=== PATIENT | female | born 1960 | race Caucasian/White ===

== ENCOUNTER → 2016-10-26 | Outpatient (CLI) | payer OTHER ==
--- NOTE | 2016-10-26 08:57 | US ---
EXAMINATION TYPE: US abdomen complete DATE OF EXAM: 10/26/2016 8:39 AM COMPARISON: NONE CLINICAL HISTORY: R10.84 Generalized ABD Pain. Epigastric pain EXAM MEASUREMENTS: Liver Length: 13.8 cm Gallbladder Wall: 0.2 cm CBD: 0.5 cm Spleen: 10.3 cm Right Kidney: 9.2 x 5.2 x 3.4 cm Left Kidney: 10.0 x 5.6 x 5.1 cm Pancreas: wnl Liver: wnl Gallbladder: posterior wall focus noted in supine position only suggests possible solitary, mobile, s mall, minimally shadowing stone = 0.3 x 0.3 x 0.3cm. Evidence for sonographic Bearden's sign: No CBD: wnl Spleen: wnl Right Kidney: wnl Left Kidney: wnl Upper IVC: wnl Abd Aorta: wnl Small nonshadowing focus in gallbladder favor small polyp. No shadowing mobile gallstones are seen. IMPRESSION: No shadowing mobile gallstones or ultrasound evidence for acute cholecystitis.
== END | disposition home or self-care (01) ==
LOC: RADUSWWP 08:06
PROVIDERS: ATTEND Family Medicine
DX: R10.84 Generalized abdominal pain (principal)
CPT/HCPCS: 76700

== ENCOUNTER → 2017-06-23 | Outpatient (CLI) | payer OTHER ==
--- NOTE | 2017-06-23 13:17 | BD ---
EXAMINATION TYPE: MG DEXA axial skeleton. DATE OF EXAM: 06/23/2017 CLINICAL HISTORY: Height: 62 Weight: 128 FRAX RISK QUESTIONS: Alcohol (3 or more units per day): no Family History (Parent hip fracture): no Glucocorticoids (More than 3mos): not now..topical cream of & off as needed (Ex: prednisone, prednisolone, methylprednisolone, dexamethasone, and hydrocortisone). History of Fracture in Adulthood: no Secondary Osteoporosis: 1. Type 1 Diabetes: no 2. Hyperthyroidism: no 3. Menopause before 45: no 4. Malnutrition: no 5. Chronic liver disease: no Rheumatoid Arthritis: no Current Tobacco Use: no RISK FACTORS HISTORY OF: Family History of Osteoporosis: no Active: yes Diet low in dairy products/other sources of calcium: about one serving a day Postmenopausal woman: yes Take estrogen and/or progesterone medications: no Lost more than 2 inches in height since high school: no Frequent falls: no Poor Health: no Hyperparathyroidism: no Adrenal Insufficiency: no MEDICATIONS: Prednisone or other steroids: not at present...uses topical cream on & off as needed Thyroid Medications: no Osteoporosis Medications: no Additional Medications: blood pressure meds EXAM MEASUREMENTS: Bone mineral densitometry was performed using the Democravise System. Bone mineral density as measured about the Lumbar spine is: ----- L1-L4(G/cm2): 1.159 T Score Values are as follows: ----- L2: -0.2 ----- L3: -0.7 ----- L4: 0.2 ----- L1-L4: -0.2 Bone mineral density has: Decreased -3.7% since study of: 03/15/2014 Bone mineral density about the R hip (g/cm2): 0.793 Bone mineral density about the L hip (g/cm2): 0.798 T Score values are as follows: -----R Neck: -1.8 -----L Neck: -1.7 -----R Total: -1.1 -----L Total: -1.2 Bone mineral density has: Decreased -5.3% since study of: 03/15/2014 IMPRESSION: Osteopenia (T Score between -2.5 and -1 as noted by T score values There is slightly increased risk of fracture and the patient may be considered for treatment. Re-Screen 2-5 years. NOTE: T-SCORE=SD OF THE YOUNG ADULT MEAN.
--- NOTE | 2017-06-24 11:48 | MM ---
Reason for exam: screening (asymptomatic). Last mammogram was performed 3 years and 3 months ago. History: Patient is postmenopausal and is nulliparous. Physical Findings: A clinical breast exam by your physician is recommended on an annual basis and results should be correlated with mammographic findings. MG 3D Screening Mammo W/Cad Bilateral CC and MLO view(s) were taken. Prior study comparison: March 15, 2014, bilateral MG screening mammo w CAD. March 03, 2012, bilateral digital screening mammo w/CAD. The breast tissue is heterogeneously dense. This may lower the sensitivity of mammography. There is no discrete abnormality. ASSESSMENT: Negative, BI-RAD 1 RECOMMENDATION: Routine screening mammogram of both breasts in 1 year.
== END | disposition home or self-care (01) ==
LOC: RADMAMWWP 08:16
PROVIDERS: ATTEND Family Medicine
DX: Z12.31 Encounter for screening mammogram for malignant neoplasm of breast (principal); M85.88 Other specified disorders of bone density and structure, other site; Z78.0 Asymptomatic menopausal state
CPT/HCPCS: 77080; 77063; G0202

== ENCOUNTER 2018-05-01 09:16 | Day surgery (SDC) | payer OTHER ==
[2018-04-26 12:16] VITALS: BMI 23.3
[~2018-05-01 09:16] MED LIST: LACTATED RINGERS 1,000 ML IV SCH; LIDOCAINE 1% 20 ML VIAL (10MG/ML) FOR IV START INTRADERMA PRN
[2018-05-01 09:36] VITALS: TEMP 97.8
[2018-05-01] MEDS ORDERED: LACTATED RINGERS 1,000 ML IV ONE (09:36)
[2018-05-01] MEDS ORDERED: LIDOCAINE 1% 20 ML VIAL (10MG/ML) FOR IV START INTRADERMA ONE (09:39)
[2018-05-01] MEDS ORDERED: PROPOFOL 10 MG/ML 20 ML VIAL IV ONE (10:41)
[2018-05-01 11:10] VITALS: RESP 16
--- NOTE | 2018-05-01 11:15 | P.PCN ---
Date of Procedure: 05/01/18 Procedure(s) Performed: Procedure: Total colonoscopy. Preoperative diagnosis: GI bleeding. Postoperative diagnosis: Mild sigmoid diverticulosis with no evidence of acute diverticulitis, strictures, polyps or cancer. Preparation: HalfLytely prep. Sedation: Was provided by anesthesia. Brief clinical history: The patient is a 57-year-old female who is scheduled for this evaluation because of an episode of diarrhea with rectal bleeding that she experienced around 3 weeks ago. Since she never had a colonoscopy in the past, she was scheduled for this evaluation. She has done well after that night of diarrhea when she saw the blood. Now her bowel movements are back to normal and she has no abnormal bleeding. Procedure: With the patient on her left lateral decubitus position and after informed consent and adequate sedation, the perianal area was inspected and it did not show any fissures or fistulas. There were no masses felt on digital rectal examination. The Olympus CFQ 160 L video colonoscope was then inserted in the rectum in the usual fashion and advanced to the cecum. There was an occasional small diverticular orifices seen in the distal sigmoid but I saw no evidence of acute diverticulitis or strictures. The mucosa appeared healthy. No polyps or tumors were seen or any obvious pathology or potential source of bleeding. I retroflexed the endoscope in the rectum before the endoscope was withdrawn. The patient tolerated the procedure well. Plan: The patient was reassured. Discussed dietary measures. She will follow- up with you as planned and I recommended repeat exam in 10 years.
[2018-05-01 11:50] VITALS: BP 162/70; PULSE 68
== END 2018-05-01 11:52 | disposition home or self-care (01) ==
LOC: ORWHC2ENDO 09:16
DX: K57.30 Diverticulosis of large intestine without perforation or abscess without bleeding (principal); K92.2 Gastrointestinal hemorrhage, unspecified; I10 Essential (primary) hypertension; Z79.899 Other long term (current) drug therapy; Z88.0 Allergy status to penicillin
CPT/HCPCS: 81025; 45378; J2704

== ENCOUNTER → 2020-07-28 | Outpatient (CLI) | payer BC ==
--- NOTE | 2020-07-29 13:54 | MM ---
Reason for exam: screening (asymptomatic). Last mammogram was performed 1 year and 10 months ago. History: Patient is postmenopausal and is nulliparous. Physical Findings: A clinical breast exam by your physician is recommended on an annual basis and results should be correlated with mammographic findings. MG Screening Mammo w CAD Bilateral CC and MLO view(s) were taken. Prior study comparison: September 18, 2018, bilateral MG 3d screening mammo w/cad. June 23, 2017, bilateral MG 3d screening mammo w/cad. The breast tissue is heterogeneously dense. This may lower the sensitivity of mammography. No significant changes when compared with prior studies. ASSESSMENT: Benign, BI-RAD 2 RECOMMENDATION: Routine screening mammogram of both breasts in 1 year.
== END | disposition home or self-care (01) ==
LOC: RADMAMWWP 13:00
PROVIDERS: ATTEND Family Medicine
DX: Z12.31 Encounter for screening mammogram for malignant neoplasm of breast (principal)
CPT/HCPCS: 77067

== ENCOUNTER → 2020-12-22 | Outpatient (CLI) | payer BC | END | disposition home or self-care (01) | LOC: LABWHC1 10:22 | PROVIDERS: ATTEND Physician Assistant Medical | DX: L40.0 Psoriasis vulgaris (principal) | CPT/HCPCS: 36415; 86480 ==

== ENCOUNTER 2021-02-02 16:19 | Inpatient (IN) | payer BC ==
--- NOTE | 2021-02-02 19:17 | ED ---
General Adult HPI - General Source: patient Mode of arrival: ambulatory Limitations: no limitations <Mark Onofre - Last Filed: 02/02/21 20:00> <Sowmya Jackson - Last Filed: 02/14/21 19:20> - General Chief complaint: Extremity Injury, Lower Stated complaint: lt hip pain, sent by Dr Ta Time Seen by Provider: 02/02/21 19:07 - History of Present Illness Initial comments: 60-year-old female presents to emergency Department with a chief complaint of admission for surgery. Patient states she spoke to gale ladd who is working Dr. Ta and advised him to come to the emergency department for ad mission because she has a scheduled surgery tomorrow for left hip repair. She reports minimal pain at this time. Does not want any symptomatic control. Has no other complaints. (Mark Onofre) - Related Data Home Medications Medication Instructions Recorded Confirmed Metoprolol Succinate [Toprol XL] 200 mg PO DAILY 04/27/18 02/02/21 Ustekinumab [Stelara] 45 mg SQ DIRECTED 02/02/21 02/02/21 hydroCHLOROthiazide 25 mg PO DAILY 02/02/21 02/02/21 Previous Rx's Medication Instructions Recorded Apixaban [Eliquis] 2.5 mg PO BID 35 Days #70 tab 02/03/21 HYDROcodone/APAP 7.5-325MG [[place] 1 - 2 tab PO Q6H PRN #32 tab 02/03/21 7.5-325] Potassium Chloride ER [K-Dur 20] 20 meq PO DAILY #30 tab 02/03/21 Sennosides [Senokot] 2 tab PO DAILY PRN #60 tablet 02/03/21 Allergies Allergy/AdvReac Type Severity Reaction Status Date / Time Penicillins Allergy Rash/Hives Verified 02/02/21 20:45 Review of Systems ROS Other: All systems not noted in ROS Statement are negative. <Mark Onofre - Last Filed: 02/02/21 20:00> ROS Other: All systems not noted in ROS Statement are negative. <Sowmya Jackson - Last Filed: 02/14/21 19:20> ROS Statement: Those systems with pertinent positive or pertinent negative responses have been documented in the HPI. Past Medical History Past Medical History: Hypertension, Skin Disorder Additional Past Medical History / Comment(s): PSORIASIS History of Any Multi-Drug Resistant Organisms: None Reported Past Surgical History: Tonsillectomy Additional Past Surgical History / Comment(s): RT WRIST SX TEEN, Past Anesthesia/Blood Transfusion Reactions: Motion Sickness Past Psychological History: No Psychological Hx Reported Smoking Status: Current some day smoker Past Alcohol Use History: Occasional Past Drug Use History: None Reported - Past Family History Mother Family Medical History: No Reported History <Mark Onofre - Last Filed: 02/02/21 20:00> General Exam Limitations: no limitations General appearance: alert, in no apparent distress Head exam: Present: atraumatic, normocephalic, normal inspection Eye exam: Present: normal appearance Pupils: Present: normal accommodation ENT exam: Present: normal exam, normal oropharynx, mucous membranes moist Neck exam: Present: normal inspection, full ROM. Absent: tenderness Respiratory exam: Present: normal lung sounds bilaterally. Absent: respiratory distress Cardiovascular Exam: Present: regular rate, normal rhythm, normal heart sounds. Absent: systolic murmur Extremities exam: Present: normal inspection, tenderness (Left hip tenderness), normal capillary refill. Absent: full ROM (Limited range of motion of left hip) Back exam: Present: normal inspection, full ROM Neurological exam: Present: alert, oriented X3 Psychiatric exam: Present: normal affect, normal mood Skin exam: Present: warm, dry, intact, normal color <Mark Onofre Last Filed: 02/02/21 20:00> Course Vital Signs 02/02/21 02/03/21 02/03/21 17:26 04:04 09:35 Temperature 98 F Pulse Rate 76 72 60 Respiratory 18 17 16 Rate Blood Pressure 135/73 122/83 120/60 O2 Sat by Pulse 99 99 98 Oximetry 02/03/21 12:46 Temperature Pulse Rate 56 L Respiratory 16 Rate Blood Pressure 132/66 O2 Sat by Pulse 98 Oximetry Medical Decision Making - Lab Data Result diagrams: 02/02/21 19:36 <Mark Onofre Last Filed: 02/02/21 20:00> - Lab Data Result diagrams: 02/03/21 19:44 02/04/21 09:31 <Sowmya Jackson - Last Filed: 02/14/21 19:20> - Medical Decision Making 60-year-old female presents to emergency Department with a chief complaint of admission for surgery. I spoke with who reocommended presurgical workup. analgesics prn. npo after midnight. medicine consult. case discussed with dr jackson (Mark Onofre) I was available for consultation in the emergency department. The history and p hysical exam were done by the midlevel provider. I was consulted for this patients care. I reviewed the case with the midlevel provider and based on their presentation of the patient, I agree with the assessment, medical decision making and plan of care as documented. Chart was dictated using [place] dictation software. Attempts were made to correct any dictation errors however some typographical errors may persist. Patient was seen during a national state of emergency due to the Covid-19 quinonez demic. (Sowmya Jackson) - Lab Data Lab Results 02/02/21 02/02/21 02/02/21 Range/Units 19:36 19:36 19:36 WBC 10.5 (3.8-10.6) k/uL RBC 4.98 (3.80-5.40) m/uL Hgb 15.0 (11.4-16.0) gm/dL Hct 44.1 (34.0-46.0) % MCV 88.5 (80.0-100.0) fL MCH 30.0 (25.0-35.0) pg MCHC 34.0 (31.0-37.0) g/dL RDW 12.2 (11.5-15.5) % Plt Count 265 (150-450) k/uL MPV 8.1 Neutrophils % 75 % Lymphocytes % 14 % Monocytes % 6 % Eosinophils % 1 % Basophils % 1 % Neutrophils # 7.9 H (1.3-7.7) k/uL Lymphocytes # 1.5 (1.0-4.8) k/uL Monocytes # 0.6 (0-1.0) k/uL Eosinophils # 0.1 (0-0.7) k/uL Basophils # 0.1 (0-0.2) k/uL PT 9.8 (9.0-12.0) sec INR 0.9 (<1.2) APTT 22.4 (22.0-30.0) sec Sodium 137 (137-145) mmol/L Potassium 3.3 L (3.5-5.1) mmol/L Chloride 98 (98-107) mmol/L Carbon Dioxide 29 (22-30) mmol/L Anion Gap 10 mmol/L BUN 27 H (7-17) mg/dL Creatinine 0.83 (0.52-1.04) mg/dL Est GFR (CKD-EPI)AfAm >90 (>60 ml/min/1.73 sqM) Est GFR (CKD-EPI)NonAf 78 (>60 ml/min/1.73 sqM) Glucose 96 (74-99) mg/dL Calcium 10.4 H (8.4-10.2) mg/dL Total Bilirubin 0.2 (0.2-1.3) mg/dL AST 23 (14-36) U/L ALT 22 (4-34) U/L Alkaline Phosphatase 98 (38-126) U/L Total Protein 7.1 (6.3-8.2) g/dL Albumin 4.5 (3.5-5.0) g/dL Urine Color Urine Appearance (Clear) Urine pH (5.0-8.0) Ur Specific [place] (1.001-1.035) Urine Protein (Negative) Urine Glucose (UA) (Negative) Urine Ketones (Negative) Urine Blood (Negative) Urine Nitrite (Negative) Urine Bilirubin (Negative) Urine Urobilinogen (<2.0) mg/dL Ur Leukocyte Esterase (Negative) 02/02/21 Range/Units 19:36 WBC (3.8-10.6) k/uL RBC (3.80-5.40) m/uL Hgb (11.4-16.0) gm/dL Hct (34.0-46.0) % MCV (80.0-100.0) fL MCH (25.0-35.0) pg MCHC (31.0-37.0) g/dL RDW (11.5-15.5) % Plt Count (150-450) k/uL MPV Neutrophils % % Lymphocytes % % Monocytes % % Eosinophils % % Basophils % % Neutrophils # (1.3-7.7) k/uL Lymphocytes # (1.0-4.8) k/uL Monocytes # (0-1.0) k/uL Eosinophils # (0-0.7) k/uL Basophils # (0-0.2) k/uL PT (9.0-12.0) sec INR (<1.2) APTT (22.0-30.0) sec Sodium (137-145) mmol/L Potassium (3.5-5.1) mmol/L Chloride (98-107) mmol/L Carbon Dioxide (22-30) mmol/L Anion Gap mmol/L BUN (7-17) mg/dL Creatinine (0.52-1.04) mg/dL Est GFR (CKD-EPI)AfAm (>60 ml/min/1.73 sqM) Est GFR (CKD-EPI)NonAf (>60 ml/min/1.73 sqM) Glucose (74-99) mg/dL Calcium (8.4-10.2) mg/dL Total Bilirubin (0.2-1.3) mg/dL AST (14-36) U/L ALT (4-34) U/L Alkaline Phosphatase (38-126) U/L Total Protein (6.3-8.2) g/dL Albumin (3.5-5.0) g/dL Urine Color Light Yellow Urine Appearance Clear (Clear) Urine pH 5.5 (5.0-8.0) Ur Specific [place] 1.012 (1.001-1.035) Urine Protein Negative (Negative) Urine Glucose (UA) Negative (Negative) Urine Ketones Negative (Negative) Urine Blood Negative (Negative) Urine Nitrite Negative (Negative) Urine Bilirubin Negative (Negative) Urine Urobilinogen <2.0 (<2.0) mg/dL Ur Leukocyte Esterase Negative (Negative) Disposition Is patient prescribed a controlled substance at d/c from ED?: No Time of Disposition: 20:02 <Mark Onofre - Last Filed: 02/02/21 20:00> <Sowmya Jackson - Last Filed: 02/14/21 19:20> Clinical Impression: Hip fracture, left Disposition: ADMITTED IP TO THIS HOSP Condition: Fair
[2021-02-02 19:55] LABS: Basophils # (A) 0.1 k/uL (0-0.2); Basophils % (A) 1 %; Eosinophils # (A) 0.1 k/uL (0-0.7); Eosinophils % (A) 1 %; HCT 44.1 % (34.0-46.0); Lymphocytes # (A) 1.5 k/uL (1.0-4.8); Lymphocytes % (A) 14 %; MCV 88.5 fL (80.0-100.0); Mean Platelet Volume 8.1; Monocytes # (A) 0.6 k/uL (0-1.0); Monocytes % (A) 6 %; Neutrophils # (A) 7.9 k/uL (1.3-7.7); Neutrophils % (A) 75 %; Platelet Count 265 k/uL (150-450); RBC 4.98 m/uL (3.80-5.40); RDW 12.2 % (11.5-15.5); WBC 10.5 k/uL (3.8-10.6)
[2021-02-02 20:02] LABS: ALT 22 U/L (4-34); AST 23 U/L (14-36); African American GFR (CKD) >90 (>60 ml/min/1.73 sqM); Albumin 4.5 g/dL (3.5-5.0); Alkaline Phosphatase 98 U/L (38-126); Anion Gap 10 mmol/L; Blood Urea Nitrogen 27 mg/dL (7-17); Calcium 10.4 mg/dL (8.4-10.2); Carbon Dioxide 29 mmol/L (22-30); Chloride 98 mmol/L (98-107); Glucose 96 mg/dL (74-99); Non-African American GFR(CKD) 78 (>60 ml/min/1.73 sqM); Potassium 3.3 mmol/L (3.5-5.1); Sodium 137 mmol/L (137-145); Total Bilirubin 0.2 mg/dL (0.2-1.3); Total Protein 7.1 g/dL (6.3-8.2)
[2021-02-02] MEDS ORDERED: NALOXONE 0.4 MG/ML 1 ML VIAL IV PRN (20:02)
[2021-02-02] MEDS ORDERED: LORazepam 2 MG/ML INJ IV PRN (20:02)
[2021-02-02] MEDS ORDERED: MORPHINE SULFATE 4 MG/ML SYRINGE IV PRN (20:02)
[2021-02-02 20:06] LABS: Appearance,Urine Clear (Clear); Bilirubin,Urine Negative (Negative); Blood,Urine Negative (Negative); Color,Urine Light Yellow; Glucose,Urine (UA) Negative (Negative); INR 0.9 (<1.2); Ketones,Urine Negative (Negative); Leukocyte Esterase,Urine Negative (Negative); Nitrite,Urine Negative (Negative); PH, Urine 5.5 (5.0-8.0); Partial Thromboplastin Time 22.4 sec (22.0-30.0); Protein,Urine Negative (Negative); Prothrombin Time 9.8 sec (9.0-12.0); Specific Gravity,Urine 1.012 (1.001-1.035); Urobilinogen,Urine <2.0 mg/dL (<2.0)
--- NOTE | 2021-02-02 22:05 | P.HPOR ---
History of Present Illness H&P Date: 02/02/21 Chief Complaint: Left hip fracture The patient is a pleasant 60 year old female with hypertension and psoriatic arthritis who presented to our office today with left hip pain. She states she caught her foot in a shoe and lost her balance then fell onto her left side on 01/23/2021. She experienced some pain to the left hip but continued to walk on the leg with some difficulty. The patient went to [facility] this past TuesdayJanuary 30 and x-rays were taken. A femoral neck fracture was found and she sent home with follow up with orthopedic surgery today. She states her pain is minimal and she has been using crutches since last week. She lives alone with her dog and is planning on moving to another house in town in 2 weeks. The patient was sent to the emergency department for admission to the hospital today for surgical intervention tomorrow with Dr. Arie Ta. She appears comfortable at this time. Review of Systems Constitutional: Denies chills, Denies fatigue, Denies fever Cardiovascular: Denies chest pain, Denies shortness of breath Respiratory: Denies cough Gastrointestinal: Denies diarrhea, Denies nausea, Denies vomiting Musculoskeletal: left: hip pain, hip stiffness Past Medical History Past Medical History: Hypertension, Skin Disorder Additional Past Medical History / Comment(s): PSORIASIS History of Any Multi-Drug Resistant Organisms: None Reported Past Surgical History: Tonsillectomy Additional Past Surgical History / Comment(s): RT WRIST SX TEEN, Past Anesthesia/Blood Transfusion Reactions: Motion Sickness Past Psychological History: No Psychological Hx Reported Smoking Status: Current some day smoker Past Alcohol Use History: Occasional Past Drug Use History: None Reported - Past Family History Mother Family Medical History: No Reported History Medications and Allergies Home Medications Medication Instructions Recorded Confirmed Type Metoprolol Succinate [Toprol XL] 200 mg PO DAILY 04/27/18 02/02/21 History Ustekinumab [Stelara] 45 mg SQ DIRECTED 02/02/21 02/02/21 History hydroCHLOROthiazide 25 mg PO DAILY 02/02/21 02/02/21 History Allergies Allergy/AdvReac Type Severity Reaction Status Date / Time Penicillins Allergy Rash/Hives Verified 02/02/21 20:45 Physical Examination The patient is a 60 y/o female in no acute distress. She is alert and oriented x3. Her head is normocephalic, atraumatic. No cervical pain on palpation. No step-offs noted in the cervical spine. Exam of the left lower extremity reveals very slight shortening and external rotation. There is pain on flexion of the hip and on internal and external rotation of the hip joint. She is unable to comfortably bear weight in the left leg. Exam of the right leg reveals no obvious deformity or pain on ROM of the hip, knee, or ankle. Bilateral calves are soft and nontender. Good foot and ankle motion without difficulty. Circulatory status and neurological status are intact. Results - Labs Labs: Abnormal Lab Results - Last 24 Hours (Table) 02/02/21 02/02/21 Range/Units 19:36 19:36 Neutrophils # 7.9 H (1.3-7.7) k/uL Potassium 3.3 L (3.5-5.1) mmol/L BUN 27 H (7-17) mg/dL Calcium 10.4 H (8.4-10.2) mg/dL H & H 02/02/21 Range/Units 19:36 Hgb 15.0 (11.4-16.0) gm/dL Hct 44.1 (34.0-46.0) % Coagulation 02/02/21 Range/Units 19:36 INR 0.9 (<1.2) Result Diagrams: 02/02/21 19:36 02/02/21 19:36 - Diagnostic results Hip x-ray: other (Outside x-rays of the left hip in our office reveal an impac [place] displaced femoral neck fracture. ) Assessment and Plan (1) Hypertension Current Visit: Yes Status: Acute Code(s): I10 - ESSENTIAL (PRIMARY) HYPERTENSION SNOMED Code(s): 42386577 (2) Arthritis with psoriasis Current Visit: Yes Status: Acute Code(s): L40.50 - ARTHROPATHIC PSORIASIS, UNSPECIFIED SNOMED Code(s): 477334846 (3) Hip fracture, left Current Visit: Yes Status: Acute Code(s): S72.002A - FRACTURE OF UNSP PART OF NECK OF LEFT FEMUR, INIT SNOMED Code(s): 941174125 Plan: The clinical and x-ray findings were discussed with the patient. The case was discussed with Dr. Arie Ta. The patient will be admitted to the hospital for surgical intervention that is planned for tomorrow. She is scheduled for a left hip hemiarthroplasty. Internal medicine consult has been ordered for surgical clearance. Surgical risks were discussed that include infection, scaring, bleeding, nerve damage, blood clots, stroke, ND, and including . The patient is in agreement of the plan and she would like to proceed with surgery tomorrow when cleared by internal medicine. She will receive physical therapy after surgery and probable discharge home with homecare.
[2021-02-02] MEDS: SODIUM CHLORIDE 0.9% 1,000 ML IV SCH (22:49)
[2021-02-02] MEDS: HYDROmorphone 0.5 MG/0.5 ML SYRINGE IVP PRN (22:49)
[2021-02-03] MEDS: HYDROmorphone 0.5 MG/0.5 ML SYRINGE IVP PRN (03:09)
[2021-02-03] MEDS ORDERED: USTEKINUMAB 45 MG/0.5 ML SQ SCH (09:45)
[2021-02-03] MEDS: POTASSIUM CHLORIDE 20 MEQ in WATER FOR INJECTION 1 100ML.BAG IVPB SCH ×2 (09:53→12:03)
[2021-02-03] MEDS: SODIUM CHLORIDE 0.9% 1,000 ML IV SCH ×3 (09:53→22:29)
[2021-02-03] MEDS: ONDANSETRON 4 MG/2 ML VIAL IVP PRN (09:57)
--- NOTE | 2021-02-03 12:01 | P.CONS ---
History of Present Illness - Reason for Consult Preoperative clearance - History of Present Illness Patient is a very pleasant 60-year-old female came in the after she slipped and fell and had a femoral neck fracture. Medicine was consulted for preoperative clearance. Patient denied any significant past medical history of coronary artery disease and patient doesn't smoke on a regular basis but occasionally smokes. Patient denied any fever chills patient denied any shortness of breath. Patient is in some pain because of the femoral neck fracture patient probably will undergo surgical intervention today. Patient had an EKG which showed mild sinus bradycardia. Patient is on beta david as well as hydrochlorothiazide of her blood pressure and patient does have history of psoriatic arthritis for which patient is on stelara. REVIEW OF SYSTEMS: CONSTITUTIONAL: No fever, no malaise, no fatigue. HEENT: No recent visual problems or hearing problems. Denied any sore throat. CARDIOVASCULAR: No chest pain, orthopnea, PND, no palpitations, no syncope. PULMONARY: No shortness of breath, no cough, no hemoptysis. GASTROINTESTINAL: No diarrhea, no nausea, no vomiting, no abdominal pain. NEUROLOGICAL: No headaches, no weakness, no numbness. HEMATOLOGICAL: Denies any bleeding or petechiae. GENITOURINARY: Denies any burning micturition, frequency, or urgency. MUSCULOSKELETAL/RHEUMATOLOGICAL: Left hip pain ENDOCRINE: Denies any polyuria or polydipsia. The rest of the 14-point review of systems is negative. PHYSICAL EXAMINATION: GENERAL: The patient is alert and oriented x3, not in any acute distress. Well developed, well nourished. HEENT: Pupils are round and equally reacting to light. EOMI. No scleral icterus. No conjunctival pallor. Normocephalic, atraumatic. No pharyngeal erythema. No thyromegaly. CARDIOVASCULAR: S1 and S2 present. No murmurs, rubs, or gallops. PULMONARY: Chest is clear to auscultation, no wheezing or crackles. ABDOMEN: Soft, nontender, nondistended, normoactive bowel sounds. No palpable organomegaly. MUSCULOSKELETAL: Deferred to orthopedic surgery EXTREMITIES: No cyanosis, clubbing, or pedal edema. NEUROLOGICAL: Gross neurological examination did not reveal any focal deficits. SKIN: No rashes. Assessment and plan -Preoperative clearance: Patient is low operative risk for left hip surgery. I'm holding off on antiplatelet medications to prevent perioperative hypotension metoprolol will be resumed. If patient is being discharged today after the surgery, recommend holding off hydrochlorothiazide for next a couple days -Psoriatic arthritis for which patient is on multiple antibody which will be resumed -Hypokalemia: Secondary to hydrochlorothiazide patient will be given prescription for potassium on the days whenever she uses hydrochlorothiazide. DVT prophylaxis: Past Medical History Past Medical History: Hypertension, Skin Disorder Additional Past Medical History / Comment(s): PSORIASIS History of Any Multi-Drug Resistant Organisms: None Reported Past Surgical History: Tonsillectomy Additional Past Surgical History / Comment(s): RT WRIST SX TEEN, Past Anesthesia/Blood Transfusion Reactions: Motion Sickness Past Psychological History: No Psychological Hx Reported Smoking Status: Current some day smoker Past Alcohol Use History: Occasional Past Drug Use History: None Reported - Past Family History Mother Family Medical History: No Reported History Medications and Allergies Home Medications Medication Instructions Recorded Confirmed Type Metoprolol Succinate [Toprol XL] 200 mg PO DAILY 04/27/18 02/02/21 History Ustekinumab [Stelara] 45 mg SQ DIRECTED 02/02/21 02/02/21 History hydroCHLOROthiazide 25 mg PO DAILY 02/02/21 02/02/21 History Potassium Chloride ER [K-Dur 20] 20 meq PO DAILY #30 tab 02/03/21 Rx Allergies Allergy/AdvReac Type Severity Reaction Status Date / Time Penicillins Allergy Rash/Hives Verified 02/02/21 20:45 Physical Exam Vitals: Vital Signs Temp Pulse Resp BP Pulse Ox 02/03/21 09:35 60 16 120/60 98 02/03/21 04:04 72 17 122/83 99 02/02/21 17:26 98 F 76 18 135/73 99 Intake and Output 02/02/21 02/03/21 02/03/21 22:59 06:59 14:59 Other: Weight 46.72 kg Results CBC & Chem 7: 02/02/21 19:36 02/02/21 19:36 Labs: Abnormal Lab Results - Last 24 Hours (Table) 02/02/21 02/02/21 Range/Units 19:36 19:36 Neutrophils # 7.9 H (1.3-7.7) k/uL Potassium 3.3 L (3.5-5.1) mmol/L BUN 27 H (7-17) mg/dL Calcium 10.4 H (8.4-10.2) mg/dL
[2021-02-03] MEDS: METOPROLOL SUCCINATE (ER) 100 MG TAB.ER.24H PO SCH (12:34)
[2021-02-03] MEDS ORDERED: METOPROLOL SUCCINATE (ER) 100 MG TAB.ER.24H PO STA (12:35)
[2021-02-03] MEDS ORDERED: IV FLUID CONTINUATION 1,000 ML IV ONE (13:51)
[2021-02-03] MEDS ORDERED: HYDROmorphone 0.5 MG/0.5 ML SYRINGE IVP PRN (14:03)
[2021-02-03] MEDS ORDERED: NALOXONE 0.4 MG/ML 1 ML VIAL IV PRN (14:03)
[2021-02-03] MEDS ORDERED: diazePAM 5 MG TAB PO PRN (14:03)
[2021-02-03] MEDS ORDERED: MAGNESIUM HYDROXIDE 2,400 MG/10 ML CUP PO PRN (14:03)
[2021-02-03] MEDS ORDERED: HYDROmorphone 0.2 MG/1 ML SYRINGE IVP PRN (14:03)
[2021-02-03] MEDS ORDERED: hydrOXYzine pamoate 25 MG CAP PO PRN (14:03)
[2021-02-03] MEDS ORDERED: HYDROcodone/APAP 7.5-325MG 1 EACH TAB PO PRN (14:06)
[2021-02-03] MEDS ORDERED: ONDANSETRON 4 MG/2 ML VIAL IVP ONE (15:18)
[2021-02-03] MEDS ORDERED: DEXAMETHASONE SOD PHOSPHATE 4 MG/ML 1 ML VIAL IVP ONE (15:18)
[2021-02-03] MEDS ORDERED: MIDAZOLAM 2 MG/2 ML VIAL IVP ONE (15:19)
[2021-02-03] MEDS ORDERED: fentaNYL (PF) 50 MCG/ML 2 ML AMP ONE (16:29)
[2021-02-03] MEDS ORDERED: MIDAZOLAM 2 MG/2 ML VIAL ONE (16:29)
[2021-02-03] MEDS ORDERED: SUCCINYLCHOLINE CHLORIDE 100 MG/5 ML SYR IV ONE (16:29)
[2021-02-03] MEDS ORDERED: HYDROmorphone (PF) 1 MG/ML ONE (16:29)
[2021-02-03] MEDS ORDERED: PROPOFOL 10 MG/ML 20 ML VIAL IV ONE (16:29)
[2021-02-03] MEDS ORDERED: ePHEDrine SULFATE/0.9% NACL/PF 50 MG/5 ML SYRINGE IV ONE (16:29)
[2021-02-03] MEDS ORDERED: LIDOCAINE 1% INJ 10MG/ML (20 ML MDV) ONE (16:29)
--- NOTE | 2021-02-03 17:18 | P.OP ---
Date of Procedure: 02/03/21 Preoperative Diagnosis: Subcapital fracture left hip Postoperative Diagnosis: Subcapital fracture left hip Procedure(s) Performed: Left hip hemiarthroplasty Implants: Chu and nephew Polarstem size 1 standard Chu & Nephew tandem unipolar, 44 mm Chu & Nephew tandem unipolar 12/14 taper sleeve, +0 mm All components were press-fit. Anesthesia: spinal Surgeon: Arie Ta Principal Systems Architect #1: Jessica Tompkins Estimated Blood Loss (ml): 50 Pathology: other (Femoral head) Condition: stable Disposition: PACU Indications for Procedure: This is a 52-year-old female that sustained a fall approximately week ago at home. She continued to have pain and went to the [facility] breasts clinic and was diagnosed the subcapital hip fracture. She was then sent home and presented to the office yesterday. She was seen by one of my nurse practitioners and admitted to the hospital for surgical treatment for her left hip fracture. Treatment options were discussed at length with her and after discussing the surgical nonsurgical treatment options with her at length she wishes to proceed with a left hip hemiarthroplasty and informed consent was obtained. Operative Findings: The operative findings are consistent with a subcapital fracture of her left hip Description of Procedure: Patient was seen and evaluated in the preoperative area, consent was reviewed and the operative site was marked with a skin marker. Patient was then brought to the operating room and given 2 g of Ancef intravenously. A spinal anesthetic was administered by the anesthesia department. Patient was then placed in a lateral decubitus position and held with a [place] hip positioner. The bony prominences were well-padded and an axillary roll was placed. The hip was then prepped and draped in the usual sterile fashion. A universal timeout was then performed which confirmed the patient's name, surgical site, ALLERGIES, and procedure. A standard anterolateral approach the hip was performed. Skin and subcutaneous tissues were sharply incised with an incision centered over the tip of the greater trochanter. The incision was carefully dissected down to the fascia. The fascia was then split in line with skin incision and a Charnley retractor was gently placed. The abductors were then identified, and the anterior one third of the abductors were released off the trochanter and one large sleeve. The fracture hematoma was evacuated and the proximal femur was exposed by externally rotating the femur. The fracture site was readily visualized. Next, using an osteotomy guide, the proximal femur was osteotomized at the appropriate level of the above the lesser trochanter. This bone was then removed. Attention was then turned to the femoral head. Using a corkscrew, the femoral head was removed from the acetabulum without incident. The acetabulum was inspected, and found to have no significant arthrosis. Femoral head was then measured. Attention was then redirected to the femur. Proximal femur was re-exposed and a box osteotome was used to lateralize the proximal femur. A barrel handler was then used to locate the femoral canal. Sequential broaching was then performed to the appropriate size. The calcar was then planed and trial head and neck were placed. The hip was then gently reduced. Leg lengths were checked and found to be equal. Hip was then taken through a full range of motion was stable throughout. The hip was then gently dislocated with the aid of a bone hook. The trial head and neck were then removed. The femoral broach was then inspected and found to have a secure fit. The broach was then removed. The hip was then copiously irrigated with antibiotic solution with a pulse lavage. Components were then opened and the femoral stem was then impacted into the proximal femur. The trunnion was cleaned and dried, and the femoral head and neck were then impacted. Hip was again gently reduced. Again leg lengths were checked and found to be equal, and the hip was taken through a full range of motion and found to be stable. The hip was again irrigated with pulsatile lavage, then followed by the Irrrisept solution. The abductors were then repaired through drill holes to the bone to the greater trochanter, utilizing #5 Ethibond suture. Next the fascia was repaired with #2 strata fix suture. The subcutaneous tissue was then repaired with 3-0 Vicryl. The subcuticular tissue was then repaired with 3-0 strata fix suture. Skin was then closed with Exofin skin glue. An Optifoam sterile dressing was then applied and the patient was transported to the recovery room in stable condition. Principal Systems Architect ALAYNA Hartmann was required due to the complexity of surgery the need for skilled surgical specialist. She assisted with positioning the patient, draping the patient, retraction during the surgery, and closure of the wound.
[2021-02-03] MEDS: HYDROmorphone 0.5 MG/0.5 ML SYRINGE IVP ONE ×2 (17:51→18:02)
[2021-02-03] MEDS ORDERED: fentaNYL (PF) 50 MCG/ML 2 ML AMP IVP ONE ×2 (17:59→18:02)
[2021-02-03] MEDS ORDERED: LACTATED RINGERS 1,000 ML IV ONE (18:46)
--- NOTE | 2021-02-03 19:05 | XR ---
RESULT: HISTORY: post op TECHNIQUE: AP view of the left hip. COMPARISON: None. FINDINGS: There is demonstration of left hip arthroplasty. Associated postoperative soft tissue emphysema. No e vidence of immediate hardware complication. No acute fracture. IMPRESSION: Expected postoperative changes of left hip arthroplasty.
[2021-02-03] MEDS: HYDROmorphone 1 MG/ML 1 ML SYRINGE IVP PRN ×2 (19:30→23:44)
[2021-02-03 19:54] LABS: Basophils % (A) 0 %; Eosinophils % (A) 0 %; HCT 42.7 % (34.0-46.0); HGB 13.8 gm/dL (11.4-16.0); Lymphocytes # (A) 0.4 k/uL (1.0-4.8); Lymphocytes % (A) 4 %; MCH 29.2 pg (25.0-35.0); MCHC 32.4 g/dL (31.0-37.0); MCV 90.2 fL (80.0-100.0); Mean Platelet Volume 7.9; Monocytes # (A) 0.1 k/uL (0-1.0); Monocytes % (A) 1 %; Neutrophils # (A) 9.4 k/uL (1.3-7.7); Neutrophils % (A) 94 %; Platelet Count 207 k/uL (150-450); RBC 4.74 m/uL (3.80-5.40); RDW 12.2 % (11.5-15.5)
[2021-02-03] MEDS ORDERED: SENNOSIDES-DOCUSATE SODIUM 1 EACH TAB PO SCH (21:00)
[2021-02-04] MEDS: HYDROcodone/APAP 7.5-325MG 1 EACH TAB PO PRN ×2 (05:36→08:18)
[2021-02-04] MEDS: SODIUM CHLORIDE 0.9% 1,000 ML IV SCH (05:37)
[2021-02-04 08:29] VITALS: BP 116/63; PULSE 75; RESP 16; TEMP 98.5
[2021-02-04] MEDS ORDERED: APIXABAN 2.5 MG TABLET PO SCH ×2 (09:00→21:00)
[2021-02-04] MEDS: ONDANSETRON 4 MG/2 ML VIAL IVP PRN (09:29)
[2021-02-04] MEDS: METOPROLOL SUCCINATE (ER) 100 MG TAB.ER.24H PO SCH (09:30)
--- NOTE | 2021-02-04 10:38 | P.DS ---
Providers Date of admission: 02/02/21 19:50 Expected date of discharge: 02/04/21 Attending physician: Arie Ta Consults: 02/02/21 20:03 Consult Physician Routine Consulting Provider: Geovanni Etienne Consult Reason/Comments: left hip fracture, surgical admission Do you want consulting provider notified?: Yes Primary care physician: Tracee Stratton - Discharge Diagnosis(es) (1) Status post hip hemiarthroplasty Current Visit: Yes Status: Acute (2) Hip fracture, left Current Visit: Yes Status: Acute Hospital Course: This is a 60-year-old female who presented to our office on 02/12/2021 after falling and sustaining injury to the left hip 1 week prior. She had been trying to ambulate but was having increased pain and presented for evaluation. On exam and x-ray in the office she was found to have a hip fracture. The pt is admitted to our service for surgical intervention and care. The patient is taken to surgery for hemiarthroplasty of the left hip. The procedure is performed without complication or sequelae. The patient is doing well postoperatively. Vital signs are stable on postop day #1. There are no new complaints or concerns. The patient is discharged to inpatient rehab pending medical clearance today. Please refer to the [facility] rec for accurate list of medications. Patient Condition at Discharge: Fair Plan - Discharge Summary New Discharge Prescriptions: New Potassium Chloride ER [K-Dur 20] 20 meq PO DAILY #30 tab HYDROcodone/APAP 7.5-325MG [[place] 7.5-325] 1 - 2 tab PO Q6H PRN #32 tab PRN Reason: Pain Sennosides [Senokot] 2 tab PO DAILY PRN #60 tablet PRN Reason: Constipation Apixaban [Eliquis] 2.5 mg PO BID 35 Days #70 tab No Action Metoprolol Succinate [Toprol XL] 200 mg PO DAILY hydroCHLOROthiazide 25 mg PO DAILY Ustekinumab [Stelara] 45 mg SQ DIRECTED Discharge Medication List Metoprolol Succinate [Toprol XL] 200 mg PO DAILY 04/27/18 [History] Ustekinumab [Stelara] 45 mg SQ DIRECTED 02/02/21 [History] hydroCHLOROthiazide 25 mg PO DAILY 02/02/21 [History] Apixaban [Eliquis] 2.5 mg PO BID 35 Days #70 tab 02/03/21 [Rx] HYDROcodone/APAP 7.5-325MG [[place] 7.5-325] 1 - 2 tab PO Q6H PRN #32 tab 02/03/21 [Rx] Potassium Chloride ER [K-Dur 20] 20 meq PO DAILY #30 tab 02/03/21 [Rx] Sennosides [Senokot] 2 tab PO DAILY PRN #60 tablet 02/03/21 [Rx] Follow up Appointment(s)/Referral(s): [facility] [NON-STAFF] - As Needed (walker) Tracee Stratton MD [Primary Care Provider] - 1-2 days Arie Ta DO [Doctor of Osteopathic Medicine] - 2 Weeks [facility] Visiting Nurse, [NON-STAFF] - As Needed Activity/Diet/Wound Care/Special Instructions: Weightbearing as tolerated with walker. Leave dressing intact. Dressing may be removed by home care nurse or by patient in 7 days. May shower with dressing on. If dressing become saturated, please remove. Continue hip dislocation precautions. Continue use of abductor pillow for 6 weeks while sleeping. Please take Eliquis twice daily for 35 days to prevent blood clots. Recommend use of compression stockings daily until follow up to help prevent swelling and blood clots. May remove at night before sleeping. Please follow-up with [facility] in 2 weeks and call with any questions or concerns, . Discharge Disposition: HOME SELF-CARE
--- NOTE | 2021-02-04 14:57 | P.PN ---
Subjective Progress Note Date: 02/04/21 Patient is a very pleasant 60-year-old female came in the after she slipped and fell and had a femoral neck fracture. Medicine was consulted for preoperative clearance. Patient denied any significant past medical history of coronary artery disease and patient doesn't smoke on a regular basis but occasionally smokes. Patient denied any fever chills patient denied any shortness of breath. Patient is in some pain because of the femoral neck fracture patient probably will undergo surgical intervention today. Patient had an EKG which showed mild sinus bradycardia. Patient is on beta david as well as hydrochlorothiazide of her blood pressure and patient does have history of psoriatic arthritis for which patient is on stelara. 02/04/2021 Patient postop day #1 Left hip hemiarthroplasty. She is sitting up in the bed. She states that the [place] tablets of made her normal nauseous, not improved with Zofran. Patient states on discharge that she would not like the [place] tablets. Patient states that she is passing gas, she is tolerating diet, has been ambulating. Patient will go home with home care services today. Potassium level was 3.3 on 02/02/21, recheck today has been ordered. Patient was discharged home on oral potassium tablets via surgical services. Patient denies chest pain, cough, shortness of breath. She denies abdominal pain, nausea vomiting, diarrhea. ROS: Constitutional: Denied any fatigue denied any fever. Cardio vascular: denied any chest pain, palpitations Gastrointestinal denied any nausea vomiting Pulmonary: Denied any shortness of breath cough Neurologic denied any new focal deficits All inpatient medications were reviewed and appropriate changes in these medications as dictated in the interval history and assessment and plan. PHYSICAL EXAMINATION: GENERAL: The patient is alert and oriented x3, not in any acute distress. Well developed, well nourished. HEENT: Pupils are round and equally reacting to light. EOMI. No scleral icterus. No conjunctival pallor. Normocephalic, atraumatic. No pharyngeal erythema. No thyromegaly. CARDIOVASCULAR: S1 and S2 present. No murmurs, rubs, or gallops. PULMONARY: Chest is clear to auscultation, no wheezing or crackles. ABDOMEN: Soft, nontender, nondistended, normoactive bowel sounds. No palpable organomegaly. MUSCULOSKELETAL: No joint swelling or deformity. EXTREMITIES: No cyanosis, clubbing, or pedal edema. NEUROLOGICAL: Gross neurological examination did not reveal any focal deficits. SKIN: No rashes. Assessment and plan -Preoperative clearance: Patient is low operative risk for left hip surgery. I'm holding off on antiplatelet medications to prevent perioperative hypotension metoprolol will be resumed. Hold hydrochlorothiazide, can resume on Tuesday. -Psoriatic arthritis for which patient is on multiple antibody which will be resumed -Hypokalemia: Secondary to hydrochlorothiazide patient will be given prescription for potassium on the days whenever she uses hydrochlorothiazide. Recheck and follow-up with PCP. DVT prophylaxis:Eliquis on DC. Patient is to be discharged home today via surgical services with home care. Vital signs are stable, continue all current medications, hold hydrocortisone until Tuesday, take potassium supplementations when needed on the days the patient is taking hydrochlorothiazide. We'll check labs in a few days with primary care provider. Patient will follow up surgical services. Thank you for this consultation. Objective - Vital Signs Vital signs: Vital Signs Temp 98.5 F 02/04/21 07:54 Pulse 75 02/04/21 07:54 Resp 16 02/04/21 07:54 BP 116/63 02/04/21 07:54 Pulse Ox 97 02/04/21 07:54 Intake & Output 02/03/21 02/04/21 02/04/21 18:59 06:59 18:59 Intake Total 950 Output Total 50 Balance 900 Intake: IV 950 Output: Estimated Blood Loss 50 Other: Voiding Method Indwelling Catheter # Voids 1 - Labs CBC & Chem 7: 02/03/21 19:44 02/02/21 19:36 Labs: Abnormal Lab Results - Last 24 Hours (Table) 02/03/21 Range/Units 19:44 Neutrophils # 9.4 H (1.3-7.7) k/uL Lymphocytes # 0.4 L (1.0-4.8) k/uL Assessment and Plan Time with Patient: Greater than 30
[2021-02-04 21:35] LABS: African American GFR (CKD) 110.7 (60.0-200.0); Anion Gap 9.9 mmol/L (4.00-12.00); BUN/Creat Ratio 34.29 Ratio (12.00-20.00); Calcium 8.6 mg/dL (8.7-10.3); Carbon Dioxide 26.1 mmol/L (21.6-31.8); Non-African American GFR(CKD) 95.5 (60.0-200.0); Potassium 3.8 mmol/L (3.5-5.5)
[2021-02-14] MEDS ORDERED: fentaNYL (PF) 50 MCG/ML 2 ML AMP IVP ONE (18:02)
== END 2021-02-04 12:43 | disposition home health service (06) | DRG 522 ==
LOC: EC 16:19 → 4SSUR 19:50
PROVIDERS: ADMIT Orthopaedic Surgery; ATTEND Orthopaedic Surgery
PROC: 0SCB0ZZ Extirpation of Matter from Left Hip Joint, Open Approach (ICD-10-PCS; principal; 2021-02-03 07:30)
PROC: 0SRS0JA Replacement of Left Hip Joint, Femoral Surface with Synthetic Substitute, Uncemented, Open Approach (ICD-10-PCS; principal; 2021-02-03 07:30)
DX: S72.012A Unspecified intracapsular fracture of left femur, initial encounter for closed fracture (principal); L40.50 Arthropathic psoriasis, unspecified; S70.12XA Contusion of left thigh, initial encounter; I10 Essential (primary) hypertension; T50.2X5A Adverse effect of carbonic-anhydrase inhibitors, benzothiadiazides and other diuretics, initial encounter; L98.9 Disorder of the skin and subcutaneous tissue, unspecified; F17.210 Nicotine dependence, cigarettes, uncomplicated; R00.1 Bradycardia, unspecified; E87.6 Hypokalemia; W01.0XXA Fall on same level from slipping, tripping and stumbling without subsequent striking against object, initial encounter; Z79.899 Other long term (current) drug therapy; Z88.0 Allergy status to penicillin
CPT/HCPCS: 36415; 73501; 80048; 80053; 81003; 85025; 85610; 85730; 86850; 86900; 86901; 88305; 88311; 93005; 96374; 99285

== ENCOUNTER → 2021-03-06 | Outpatient (CLI) | payer BC ==
--- NOTE | 2021-03-06 10:53 | BD ---
EXAMINATION TYPE: Axial Bone Density DATE OF EXAM: 03/06/2021 COMPARISON: 06.23.2017 CLINICAL HISTORY: 60 YR OLD FEMALE.....ICD-10 CODE: Z78.0 POST MENOPAUSAL, LT HIP FX Height: 61.8 Weight: 112 FRAX RISK QUESTIONS: History of Fracture in Adulthood: YES Current Tobacco Use: YES RISK FACTORS HISTORY OF: Surgery to LT HIP.....THR 02.03.2021 Postmenopausal woman: YES, AT AGE 54 YRS OLD Hyperparathyroidism: NO Adrenal Insufficiency: NO MEDICATIONS: Additional Medications: BP MEDS, REFLUX MEDS, VIT D AND MULTIVITAMIN Additional History: HX OF LT HIP FX, REFLUX ON AND OFF, HYPERTENSION EXAM MEASUREMENTS: Bone mineral densitometry was performed using the [employer]. Bone mineral density as measured about the Lumbar spine is: ----- L1-L4(G/cm2): 1.151 T Score Values are as follows: ----- L1: -0.8 ----- L2: 0.2 ----- L3: -0.7 ----- L4: 0.3 ----- L1-L4: -0.2 Bone mineral density has: Increased 0.9% since study of: 06.23.2017 Bone mineral density about the R hip (g/cm2): 0.766 T Score values are as follows: -----R Neck: -2.3 -----R Total: -1.9 Bone mineral density has: Decreased -11.4% since study of: 06.23.2017 FRAX%s: THERE IS A 16.6% CHANCE FOR A MAJOR OSTEOPOROTIC FX AND A 4.7% FOR HIP.....PROBABILITY FOR FX IN 10 YRS TIME IMPRESSION: Osteopenia NOTE: T-SCORE=SD OF THE YOUNG ADULT MEAN.
== END | disposition home or self-care (01) ==
LOC: RADBDWWP 07:45
PROVIDERS: ATTEND Family Medicine
DX: Z12.31 Encounter for screening mammogram for malignant neoplasm of breast (principal); M85.80 Other specified disorders of bone density and structure, unspecified site; Z78.0 Asymptomatic menopausal state
CPT/HCPCS: 77080

== ENCOUNTER → 2021-08-11 | Outpatient (CLI) | payer BC ==
--- NOTE | 2021-08-12 08:46 | MM ---
Reason for exam: screening (asymptomatic). Last mammogram was performed 1 year ago. History: Patient is postmenopausal and is nulliparous. Physical Findings: A clinical breast exam by your physician is recommended on an annual basis and results should be correlated with mammographic findings. MG 3D Screening Mammo W/Cad Bilateral CC and MLO view(s) were taken. Prior study comparison: July 28, 2020, bilateral MG screening mammo w CAD. September 18, 2018, bilateral MG 3d screening mammo w/cad. The breast tissue is heterogeneously dense. This may lower the sensitivity of mammography. No significant changes when compared with prior studies. ASSESSMENT: Negative, BI-RAD 1 RECOMMENDATION: Routine screening mammogram of both breasts in 1 year.
== END | disposition home or self-care (01) ==
LOC: RADMAMWWP 07:35
PROVIDERS: ATTEND Family Medicine
DX: Z12.31 Encounter for screening mammogram for malignant neoplasm of breast (principal)
CPT/HCPCS: 77063; 77067

== ENCOUNTER 2021-10-21 09:00 | Emergency (ER) | payer BC ==
[2021-10-21] MEDS ORDERED: ONDANSETRON 4 MG/2 ML VIAL IVP STA (09:53)
[2021-10-21] MEDS ORDERED: SODIUM CHLORIDE 0.9% 2,000 ML IV STA (09:53)
--- NOTE | 2021-10-21 09:55 | ED ---
Abdominal Pain HPI - General Chief Complaint: Abdominal Pain Stated Complaint: NVD/Weakness Time Seen by Provider: 10/21/21 09:24 Source: patient, family Mode of arrival: wheelchair Limitations: no limitations - History of Present Illness Initial Comments: Patient is a 61-year-old female with past history of hypertension who presents emergency department with nausea, vomiting since Tuesday. She reports that she did eat out at a restaurant Tuesday night. No one else got sick. She has been unable to hold down anything to eat or drink since then. She states that every time she tries to eat she gets nauseated. She has abdominal wall cramping due to the frequent vomiting however denies any deep abdominal pain. She feels weak and dehydrated. No fevers. Denies concern for Covid or influenza. Has not taken any medications at home for her symptoms. No other alleviating, precipitating or modifying factors - Related Data Home Medications Medication Instructions Recorded Confirmed Metoprolol Succinate [Toprol XL] 200 mg PO DAILY 04/27/18 10/21/21 Ustekinumab [Stelara] 45 mg SQ Q90D 02/02/21 10/21/21 Venlafaxine HCl ER [Effexor Xr] 75 mg PO DAILY 10/21/21 10/21/21 Previous Rx's Medication Instructions Recorded Ondansetron Odt [Zofran Odt] 4 mg PO Q8HR PRN #18 tab 10/21/21 Allergies Allergy/AdvReac Type Severity Reaction Status Date / Time Penicillins Allergy Rash/Hives Verified 10/21/21 10:45 - Childhood Review of Systems ROS Statement: Those systems with pertinent positive or pertinent negative responses have been documented in the HPI. ROS Other: All systems not noted in ROS Statement are negative. Past Medical History Past Medical History: Hypertension, Skin Disorder Additional Past Medical History / Comment(s): PSORIASIS History of Any Multi-Drug Resistant Organisms: None Reported Past Surgical History: Orthopedic Surgery, Tonsillectomy Additional Past Surgical History / Comment(s): RT WRIST SX TEEN, hip surgery january Past Anesthesia/Blood Transfusion Reactions: Motion Sickness Past Psychological History: No Psychological Hx Reported Smoking Status: Current some day smoker Past Alcohol Use History: Occasional Past Drug Use History: None Reported - Past Family History Mother Family Medical History: No Reported History General Exam Limitations: no limitations General appearance: alert, in no apparent distress Head exam: Present: atraumatic, normocephalic, normal inspection Eye exam: Present: normal appearance, PERRL, EOMI. Absent: scleral icterus, conjunctival injection, periorbital swelling ENT exam: Present: normal exam, mucous membranes dry Neck exam: Present: normal inspection. Absent: tenderness, meningismus, lymphadenopathy Respiratory exam: Present: normal lung sounds bilaterally. Absent: respiratory distress, wheezes, rales, rhonchi, stridor Cardiovascular Exam: Present: normal rhythm, tachycardia, normal heart sounds. Absent: systolic murmur, diastolic murmur, rubs, gallop, clicks GI/Abdominal exam: Present: soft, normal bowel sounds. Absent: distended, tenderness, guarding, rebound, rigid Extremities exam: Present: normal inspection, full ROM, normal capillary refill. Absent: tenderness, pedal edema, joint swelling, calf tenderness Back exam: Present: normal inspection Neurological exam: Present: alert, oriented X3, CN II-XII intact Psychiatric exam: Present: normal affect, normal mood Skin exam: Present: warm, dry, intact, normal color. Absent: rash Course Vital Signs 10/21/21 10/21/21 09:13 12:48 Temperature 98.3 F 98.8 F Pulse Rate 126 H 95 Respiratory 18 14 Rate Blood Pressure 133/72 172/89 O2 Sat by Pulse 98 98 Oximetry Medical Decision Making - Medical Decision Making Upon arrival patient is placed in room 7. A thorough history and physical exam was performed. IV access is established laboratory studies are conducted. Patient is given Zofran for nausea and 2 L of normal saline. Laboratory studies are reviewed and are within normal limits. Urinalysis demonstrates 4+ ketones. Covid and influenza are negative. I did speak with the patient about imaging however she would like to forego imaging at this time. She is reevaluated after location administration and feels improved. She is able to eat some crackers and Jell-O. Patient feels comfortable with discharge at this time. Patient is given a starter packet for Zofran. Additionally Zofran called into the pharmacy. Patient is to follow-up with her primary care doctor in 2-4 days and return for any new or worsening symptoms. Patient agreed to treatment plan and was discharged home in stable condition - Lab Data Result diagrams: 10/21/21 10:17 10/21/21 10:17 Lab Results 10/21/21 10/21/21 10/21/21 Range/Units 10:17 10:17 10:17 WBC 6.6 (3.8-10.6) k/uL RBC 5.40 (3.80-5.40) m/uL Hgb 16.0 (11.4-16.0) gm/dL Hct 46.5 H (34.0-46.0) % MCV 86.2 (80.0-100.0) fL MCH 29.7 (25.0-35.0) pg MCHC 34.4 (31.0-37.0) g/dL RDW 12.8 (11.5-15.5) % Plt Count 190 (150-450) k/uL MPV 8.1 Neutrophils % 79 % Lymphocytes % 13 % Monocytes % 6 % Eosinophils % 0 % Basophils % 1 % Neutrophils # 5.2 (1.3-7.7) k/uL Lymphocytes # 0.8 L (1.0-4.8) k/uL Monocytes # 0.4 (0-1.0) k/uL Eosinophils # 0.0 (0-0.7) k/uL Basophils # 0.0 (0-0.2) k/uL Sodium 141 (137-145) mmol/L Potassium 4.2 (3.5-5.1) mmol/L Chloride 104 (98-107) mmol/L Carbon Dioxide 24 (22-30) mmol/L Anion Gap 13 mmol/L BUN 29 H (7-17) mg/dL Creatinine 0.80 (0.52-1.04) mg/dL Est GFR (CKD-EPI)AfAm >90 (>60 ml/min/1.73 sqM) Est GFR (CKD-EPI)NonAf 81 (>60 ml/min/1.73 sqM) Glucose 106 H (74-99) mg/dL Plasma Lactic Acid Lenin (0.7-2.0) mmol/L Calcium 10.2 (8.4-10.2) mg/dL Total Bilirubin 1.1 (0.2-1.3) mg/dL AST 19 (14-36) U/L ALT 14 (4-34) U/L Alkaline Phosphatase 86 (38-126) U/L Total Protein 8.1 (6.3-8.2) g/dL Albumin 4.9 (3.5-5.0) g/dL Lipase 74 (23-300) U/L Urine Color Yellow Urine Appearance Clear (Clear) Urine pH 5.5 (5.0-8.0) Ur Specific [place] 1.024 (1.001-1.035) Urine Protein Trace H (Negative) Urine Glucose (UA) Negative (Negative) Urine Ketones 4+ H (Negative) Urine Blood Negative (Negative) Urine Nitrite Negative (Negative) Urine Bilirubin Negative (Negative) Urine Urobilinogen <2.0 (<2.0) mg/dL Ur Leukocyte Esterase Negative (Negative) Coronavirus (PCR) (Not Detectd) Influenza Type A RNA (Not Detectd) Influenza Type B (PCR) (Not Detectd) 10/21/21 10/21/21 10/21/21 Range/Units 10:17 10:17 10:18 WBC (3.8-10.6) k/uL RBC (3.80-5.40) m/uL Hgb (11.4-16.0) gm/dL Hct (34.0-46.0) % MCV (80.0-100.0) fL MCH (25.0-35.0) pg MCHC (31.0-37.0) g/dL RDW (11.5-15.5) % Plt Count (150-450) k/uL MPV Neutrophils % % Lymphocytes % % Monocytes % % Eosinophils % % Basophils % % Neutrophils # (1.3-7.7) k/uL Lymphocytes # (1.0-4.8) k/uL Monocytes # (0-1.0) k/uL Eosinophils # (0-0.7) k/uL Basophils # (0-0.2) k/uL Sodium (137-145) mmol/L Potassium (3.5-5.1) mmol/L Chloride (98-107) mmol/L Carbon Dioxide (22-30) mmol/L Anion Gap mmol/L BUN (7-17) mg/dL Creatinine (0.52-1.04) mg/dL Est GFR (CKD-EPI)AfAm (>60 ml/min/1.73 sqM) Est GFR (CKD-EPI)NonAf (>60 ml/min/1.73 sqM) Glucose (74-99) mg/dL Plasma Lactic Acid Lenin 1.8 (0.7-2.0) mmol/L Calcium (8.4-10.2) mg/dL Total Bilirubin (0.2-1.3) mg/dL AST (14-36) U/L ALT (4-34) U/L Alkaline Phosphatase (38-126) U/L Total Protein (6.3-8.2) g/dL Albumin (3.5-5.0) g/dL Lipase (23-300) U/L Urine Color Urine Appearance (Clear) Urine pH (5.0-8.0) Ur Specific [place] (1.001-1.035) Urine Protein (Negative) Urine Glucose (UA) (Negative) Urine Ketones (Negative) Urine Blood (Negative) Urine Nitrite (Negative) Urine Bilirubin (Negative) Urine Urobilinogen (<2.0) mg/dL Ur Leukocyte Esterase (Negative) Coronavirus (PCR) Not Detected (Not Detectd) Influenza Type A RNA Not Detected (Not Detectd) Influenza Type B (PCR) Not Detected (Not Detectd) Disposition Clinical Impression: Nausea and vomiting Disposition: HOME SELF-CARE Condition: Stable Instructions (If sedation given, give patient instructions): Acute Nausea and Vomiting (ED) Additional Instructions: Please take the nausea medications as directed and follow up with primary care doctor within 2-4 days. Return for any new or worsening symptoms. Increase fluid intake and eat very small meals. Prescriptions: Ondansetron Odt [Zofran Odt] 4 mg PO Q8HR PRN #18 tab PRN Reason: Nausea Is patient prescribed a controlled substance at d/c from ED?: No Referrals: Tracee Stratton MD [Primary Care Provider] - 1-2 days Time of Disposition: 12:44
[2021-10-21 10:45] LABS: ALT 14 U/L (4-34); AST 19 U/L (14-36); African American GFR (CKD) >90 (>60 ml/min/1.73 sqM); Albumin 4.9 g/dL (3.5-5.0); Alkaline Phosphatase 86 U/L (38-126); Anion Gap 13 mmol/L; Blood Urea Nitrogen 29 mg/dL (7-17); Calcium 10.2 mg/dL (8.4-10.2); Carbon Dioxide 24 mmol/L (22-30); Chloride 104 mmol/L (98-107); Glucose 106 mg/dL (74-99); Lipase 74 U/L (23-300); Non-African American GFR(CKD) 81 (>60 ml/min/1.73 sqM); Potassium 4.2 mmol/L (3.5-5.1); Sodium 141 mmol/L (137-145); Total Bilirubin 1.1 mg/dL (0.2-1.3); Total Protein 8.1 g/dL (6.3-8.2)
[2021-10-21 10:51] LABS: Basophils % (A) 1 %; Eosinophils % (A) 0 %; HCT 46.5 % (34.0-46.0); Lymphocytes # (A) 0.8 k/uL (1.0-4.8); Lymphocytes % (A) 13 %; MCH 29.7 pg (25.0-35.0); MCHC 34.4 g/dL (31.0-37.0); MCV 86.2 fL (80.0-100.0); Mean Platelet Volume 8.1; Monocytes # (A) 0.4 k/uL (0-1.0); Monocytes % (A) 6 %; Neutrophils # (A) 5.2 k/uL (1.3-7.7); Neutrophils % (A) 79 %; Platelet Count 190 k/uL (150-450); RDW 12.8 % (11.5-15.5); WBC 6.6 k/uL (3.8-10.6)
[2021-10-21 12:18] LABS: Appearance,Urine Clear (Clear); Bilirubin,Urine Negative (Negative); Blood,Urine Negative (Negative); Color,Urine Yellow; Glucose,Urine (UA) Negative (Negative); Ketones,Urine 4+ (Negative); Leukocyte Esterase,Urine Negative (Negative); Nitrite,Urine Negative (Negative); PH, Urine 5.5 (5.0-8.0); Protein,Urine Trace (Negative); Specific Gravity,Urine 1.024 (1.001-1.035); Urobilinogen,Urine <2.0 mg/dL (<2.0)
[2021-10-21] MEDS ORDERED: ONDANSETRON 4 MG ODT STARTER PACK 2 TAB BTL PO STA (12:43)
[2021-10-21 12:51] VITALS: BP 172/89; PULSE 95; RESP 14; TEMP 98.8
== END 2021-10-21 12:58 | disposition home or self-care (01) ==
LOC: EC 09:00
DX: R11.2 Nausea with vomiting, unspecified (principal); I10 Essential (primary) hypertension; F17.200 Nicotine dependence, unspecified, uncomplicated; Z20.822 Contact with and (suspected) exposure to COVID-19; Z88.0 Allergy status to penicillin
CPT/HCPCS: 36415; 80053; 83605; 83690; 85025; 81003; 87502; 87635; 99284; 96374; 96361; J2405

== ENCOUNTER → 2022-01-08 | Outpatient (CLI) | payer BC ==
[2022-01-08 11:08] LABS: Basophils # (A) 0.06 X 10*3/uL (0.00-0.10); Basophils % (A) 1.4 %; Eosinophils # (A) 0.11 X 10*3/uL (0.04-0.35); Eosinophils % (A) 2.5 %; HCT 41.1 % (37.2-46.3); HGB 13.2 g/dL (12.0-15.0); Immature Grans, Automated 0.2 %; Lymphocytes % (A) 25.2 %; MCH 27.8 pg (27.0-32.0); MCHC 32.1 g/dL (32.0-37.0); MCV 86.7 fL (80.0-97.0); Mean Platelet Volume 10.7 fL (9.5-12.2); Monocytes % (A) 9.2 %; NRBC Per 100 WBC 0 /100 WBCS (0.0-0.0); Neutrophils # (A) 2.68 X 10*3/uL (1.80-7.70); Neutrophils % (A) 61.5 %; Platelet Count 184 X 10*3/uL (140-440); RBC 4.74 X 10*6/uL (4.10-5.20); RDW 11.9 % (11.5-14.5); WBC 4.36 X 10*3/uL (4.50-10.00)
[2022-01-08 11:26] LABS: ALT 17 U/L (8-44); AST 15 U/L (13-35); African American GFR (CKD) 93.5 (60.0-200.0); Chol/HDL Ratio 3.99 Ratio; LDL Cholesterol,Calculated 160.3 mg/dL (0.0-131.0); Non-African American GFR(CKD) 80.7 (60.0-200.0)
== END | disposition home or self-care (01) ==
LOC: LABWHC1 07:21
PROVIDERS: ATTEND Dermatology MOHS-Micrographic Surgery
DX: Z13.29 Encounter for screening for other suspected endocrine disorder (principal); L40.0 Psoriasis vulgaris; L82.0 Inflamed seborrheic keratosis; L53.8 Other specified erythematous conditions; E78.2 Mixed hyperlipidemia
CPT/HCPCS: 36415; 80061; 82565; 83721; 84443; 84450; 84460; 85025; 86480

== ENCOUNTER → 2024-03-19 | Outpatient (CLI) | payer BC ==
--- NOTE | 2024-03-26 13:30 | MM ---
Reason for Exam: Screening (asymptomatic). Last screening mammogram was performed 12 month(s) ago. Patient History: Menarche at age 13. Patient has no children. Postmenopausal. Risk Values: Lea 5 year model risk: 1.8%. NCI Lifetime model risk: 8.6%. Prior Study Comparison: 07/28/2020 Bilateral Screening Mammogram, [facility]. 08/11/2021 Bilateral Screening Mammogram, [facility]. 03/18/2023 Bilateral MG 3D screening mammo w/cad, [facility]. Tissue Density: There are scattered areas of fibroglandular density. Findings: Analyzed By CAD. Right breast: There is no suspicious group of microcalcifications or new suspicious mass. Left breast: There is no suspicious group of microcalcifications or new suspicious mass. Overall Assessment: Negative, BI-RAD 1 Management: Screening Mammogram of both breasts in [address] [facility] will attempt to contact patient to return for supplemental views and ultrasound if indicated. Patient should continue monthly self-breast exams. A clinical breast exam by your physician is recommended on an annual basis. This exam should not preclude additional follow-up of suspicious palpable abnormalities. Note on Lea scores and lifetime risk: 1. A Lea score greater than 3% is considered moderate risk. If this is the case, consider specialist referral to assess eligibility for a risk reducing agent. 2. If overall lifetime risk for the development of breast cancer is 20% or higher, the patient may qualify for future screening with alternating mammogram and breast MRI. [facility], , 03/26/2024 1:28 PM. Electronically signed and approved by: Fredy Macias DO
== END | disposition home or self-care (01) ==
LOC: RADMAMWWP 06:57
PROVIDERS: ATTEND Family Medicine
DX: Z12.31 Encounter for screening mammogram for malignant neoplasm of breast
CPT/HCPCS: 77063; 77067

== ENCOUNTER → 2024-07-06 | Outpatient (CLI) | payer BC ==
[2024-07-06 15:15] LABS: ALT 28 U/L (8-44); AST 22 U/L (13-35)
[2024-07-06 21:44] LABS: Basophils # (A) 0.11 X 10*3/uL (0.00-0.10); Basophils % (A) 1.8 %; Eosinophils # (A) 0.15 X 10*3/uL (0.04-0.35); Eosinophils % (A) 2.4 %; HCT 44.2 % (37.2-46.3); HGB 13.8 g/dL (12.0-15.0); Lymphocytes # (A) 1.55 X 10*3/uL (0.90-5.00); Lymphocytes % (A) 24.9 %; MCH 27.7 pg (27.0-32.0); MCHC 31.2 g/dL (32.0-37.0); MCV 88.8 FL (80.0-97.0); Mean Platelet Volume 10.4 FL (9.5-12.2); Monocytes # (A) 0.45 X 10*3/uL (0.20-1.00); Monocytes % (A) 7.2 %; NRBC Per 100 WBC 0 X 10*3/uL (0.00-0.01); Neutrophils # (A) 3.94 X 10*3/uL (1.80-7.70); Neutrophils % (A) 63.2 %; Platelet Count 238 X 10*3/uL (140-440); RBC 4.98 X 10*6/uL (4.10-5.20); RDW 12.4 % (11.5-14.5); WBC 6.23 X 10*3/uL (4.50-10.00)
== END | disposition home or self-care (01) ==
LOC: LABWHC1 11:08
PROVIDERS: ATTEND Family Medicine
DX: Z00.00 Encounter for general adult medical examination without abnormal findings (principal); L40.0 Psoriasis vulgaris; E78.5 Hyperlipidemia, unspecified; Z79.899 Other long term (current) drug therapy
CPT/HCPCS: 36415; 82565; 84450; 84460; 85025; 86480